=== PATIENT | female | born 1965 | race Caucasian/White ===

== ENCOUNTER → 2021-03-28 | Outpatient (CLI) | payer MEDICARE, OTHER ==
[~2021-03-28] MED LIST: ASPIRIN EC81 MG PO; ATORVASTATIN CA20 MG PO; COLACE CLEAR50 MG PO; IMDUR ER TAB 3030 MG PO; K-DUR TAB 20 M20 MEQ PO; LASIX20 MG PO; LIPITOR80 MG PO; LOPRESSOR 25 MG25 MG PO; NEURONTIN300 MG PO
== END ==
LOC: HEART CORB 08:45
DX: I25.10 Atherosclerotic heart disease of native coronary artery without angina pectoris (principal); R07.9 Chest pain, unspecified; I10 Essential (primary) hypertension; E78.3 Hyperchylomicronemia
CPT/HCPCS: 78452; A9502